=== PATIENT | male | born 1960 | race American Indian/Alaskan Native ===

== ENCOUNTER 2016-12-17 08:27 | Emergency (ER) | payer MEDICAID ==
[2016-12-17 08:38] VITALS: BP 158/89
--- NOTE | 2016-12-17 09:00 | EDM.PDOC ---
ED HPI GENERAL MEDICAL PROBLEM - General Chief Complaint: Abdominal Pain Stated Complaint: IN BY AMBULANCE Time Seen by Provider: 12/17/16 08:45 Source of Information: Reports: Patient History Limitations: Reports: No Limitations - History of Present Illness INITIAL COMMENTS - FREE TEXT/NARRATIVE: This 56 yo male patient was brought to the ED by [facility] due to right lower abdominal pain and bulging. The patient reports he has a history of a right inguinal hernia that he was supposed to have repaired. The patient reports he missed his appointment due to family emergencies. Today, the patient was lifting a 5 gallon jug of water when he felt bulging in the area. The patient reports he has been attempting to reduce the hernia, but has been unable. Onset: Today Duration: Minutes:, Constant Location: Reports: Abdomen Quality: Reports: Ache, Dull Severity: Moderate Improves with: Reports: None Worsens with: Reports: None Right Abdominal Pain Score (Numeric/FACES): 70 - Related Data Allergies Allergy/AdvReac Type Severity Reaction Status Date / Time Penicillins Allergy Renal Verified 12/17/16 08:18 Insufficiency Past Medical History HEENT History: Reports: Impaired Vision Other HEENT History: legally blind, sees shadows Cardiovascular History: Reports: Hypertension Respiratory History: Reports: None Other Gastrointestinal History: R) ing hernia Genitourinary History: Reports: None Musculoskeletal History: Reports: Arthritis Neurological History: Reports: None Psychiatric History: Reports: None Endocrine/Metabolic History: Reports: None Hematologic History: Reports: None Immunologic History: Reports: None Oncologic (Cancer) History: Reports: None Dermatologic History: Reports: None - Infectious Disease History Infectious Disease History: Reports: None Social & Family History - Tobacco Use Smoking Status *Q: Current Every Day Smoker Years of Tobacco use: 25 Packs/Tins Daily: 0.5 Used Tobacco, but Quit: No Second Hand Smoke Exposure: Yes - Caffeine Use Caffeine Use: Reports: Coffee - Alcohol Use Days Per Week of Alcohol Use: 3 Number of Drinks Per Day: 6 Total Drinks Per Week: 18 - Recreational Drug Use Recreational Drug Use: No ED ROS GENERAL - Review of Systems Review Of Systems: ROS reveals no pertinent complaints other than HPI. 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)) Ears: Normal External Exam, Normal Canal, Hearing Grossly Normal, Normal TMs Nose: Normal Inspection, Normal Mucosa, No Blood Throat/Mouth: Normal Inspection, Normal Lips, Normal Teeth, Normal Gums, Normal Oropharynx, Normal Voice, No Airway Compromise Head: Atraumatic, Normocephalic Neck: Normal Inspection, Supple, Non-Tender, Full Range of Motion Respiratory/Chest: No Respiratory Distress, Lungs Clear, Normal Breath Sounds, No Accessory Muscle Use, Chest Non-Tender Cardiovascular: Normal Peripheral Pulses, Regular Rate, Rhythm, No Edema, No Gallop, No JVD, No Murmur, No Rub GI/Abdominal Exam: Normal Bowel Sounds, Soft, Tender (Right inguinal hernia), Hernia (right inguinal hernia) (Male) Exam: Deferred Rectal (Males) Exam: Deferred Back Exam: Normal Inspection, Full Range of Motion, NT Extremities: Normal Inspection, Normal Range of Motion, Non-Tender, Normal Capillary Refill, No Pedal Edema Neurological: Alert, Oriented, CN II-XII Intact, Normal Cognition, Normal Gait, Normal Reflexes, No Motor/Sensory Deficits Psychiatric: Normal Affect, Normal Mood Skin Exam: Warm, Dry, Intact, Normal Color, No Rash Lymphatic: No Adenopathy ED ABDOMINAL/GI PROCEDURES - Additional/Other Procedure(s) Procedure(s) (Free Text): Right inguinal hernia reduction by manual manipulation. Course - Vital Signs Last Recorded V/S: Last Vital Signs Temp 35.9 C 12/17/16 08:27 Pulse 68 12/17/16 08:27 Resp 16 12/17/16 08:27 BP 158/89 H 12/17/16 08:27 Pulse Ox 100 12/17/16 08:27 - Orders/Labs/Meds Labs: Laboratory Tests 12/17/16 12/17/16 12/17/16 Range/Units 08:45 09:00 09:00 WBC 7.2 (5.0-10.0) 10^3/uL RBC 4.45 L (4.6-6.2) 10^6/uL Hgb 14.2 (14.0-18.0) g/dL Hct 41.1 (40.0-54.0) % MCV 92.4 (80-100) fL MCH 31.9 (27.0-34.0) pg MCHC 34.5 (33.0-35.0) g/dL Plt Count 146 L (150-450) 10^3/uL Neut % (Auto) 70.8 (42.2-75.2) % Lymph % (Auto) 19.2 L (20.5-50.1) % [place] % (Auto) 7.6 (2-8) % Eos % (Auto) 2.1 (1.0-3.0) % Baso % (Auto) 0.3 (0.0-1.0) % Sodium 139 (135-145) mmol/L Potassium 3.1 L (3.6-5.0) mmol/L Chloride 102 (101-111) mmol/L Carbon Dioxide 24.0 (21.0-31.0) mmol/L Anion Gap 16.1 BUN 12 (7-18) mg/dL Creatinine 0.7 (0.6-1.3) mg/dL Est Cr Clr Drug Dosing 112.05 mL/min Estimated GFR (MDRD) > 60 BUN/Creatinine Ratio 17.14 Glucose 100 (74-105) mg/dL Calcium 9.2 (8.4-10.2) mg/dl Total Bilirubin 0.9 (0.2-1.0) mg/dL AST 29 (10-42) IU/L ALT 16 (10-60) IU/L Alkaline Phosphatase 65 (42-121) IU/L Total Protein 7.4 (6.7-8.2) g/dl Albumin 4.5 (3.2-5.5) g/dl Globulin 2.9 Albumin/Globulin Ratio 1.55 Urine Color Yellow (YELLOW) Urine Appearance Clear (CLEAR) Urine pH 7.0 (5.0-9.0) Ur Specific [place] 1.015 (1.005-1.030) Urine Protein Negative (NEGATIVE) Urine Glucose (UA) Negative (NEGATIVE) Urine Ketones Negative (NEGATIVE) Urine Occult Blood Negative (NEGATIVE) Urine Nitrite Negative (NEGATIVE) Urine Bilirubin Negative (NEGATIVE) Urine Urobilinogen 0.2 (0.2-1.0) mg/dL Ur Leukocyte Esterase Negative (NEGATIVE) Urine RBC Not seen /HPF Urine WBC 0-5 (0-5/HPF) /HPF Ur Epithelial Cells Rare /HPF Urine Bacteria Not seen (0-FEW/HPF) /HPF Urine Mucus Not seen /LPF - Re-Assessments/Exams Free Text/Narrative Re-Assessment/Exam: 12/17/16 09:41 Reexamination of the patient reveals that the patient is feeling much better after the hernia was reduced. Departure - Departure Time of Disposition: 09:42 Disposition: Home, Self-Care 01 Condition: Fair Clinical Impression: Inguinal hernia Qualifiers: Obstruction and gangrene presence: without obstruction or gangrene Laterality: unilateral Recurrence: recurrent Qualified Code(s): K40.91 - Unilateral inguinal hernia, without obstruction or gangrene, recurrent - Discharge Information Instructions: Inguinal Hernia, Adult, [id number] Forms: ED Department Discharge Care Plan Goals: The patient was advised of the examination and lab results during the visit. The patient's hernia was reduced without incident. The patient was encouraged to follow-up with his primary care facility for continued evaluation and management of his hernia. If the patient has any additional symptoms or concerns , the patient should follow-up with his primary care facility or return to the emergency department.
[2016-12-17 09:26] LABS: CHLORIDE,CL 102 mmol/L (101-111); SODIUM,NA 139 mmol/L (135-145)
== END 2016-12-17 10:00 | disposition home or self-care (01) ==
LOC: DL.ED 08:27
DX: K40.91 Unilateral inguinal hernia, without obstruction or gangrene, recurrent (principal); I10 Essential (primary) hypertension; M19.90 Unspecified osteoarthritis, unspecified site; F17.210 Nicotine dependence, cigarettes, uncomplicated; Z88.0 Allergy status to penicillin
CPT/HCPCS: 36415; 80053; 81001; 85025; 99285

== ENCOUNTER 2020-02-08 11:19 | Emergency (ER) | payer MEDICAID ==
--- NOTE | 2020-02-08 11:34 | EDM.PDOC ---
ED HPI GENERAL MEDICAL PROBLEM - General Chief Complaint: Abdominal Pain Stated Complaint: [facility] Time Seen by Provider: 02/08/20 11:34 Source of Information: Reports: Patient, EMS, Old Records, RN, RN Notes Reviewed History Limitations: Reports: No Limitations - History of Present Illness INITIAL COMMENTS - FREE TEXT/NARRATIVE: Pt arrives from home by [facility] with c/o that his right inguinal hernia bulged out and he cannot reduce it like he usually can. Pt states he has had the hernia for years during which time it routinely slides out and he just pushes with his hands and it would go back in. Now he has pushed and pushed but states it feel very hard and is acutely tender. Pt last ate a small amount at 0800HRS this morning. 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 Right Groin Pain Score (Numeric/FACES): 8 - Related Data Allergies Allergy/AdvReac Type Severity Reaction Status Date / Time Penicillins Allergy Renal Verified 04/26/18 19:35 Insufficiency Home Meds: Home Meds Hydrocodone/Acetaminophen [Hydrocodon-Acetaminophen 5-325] 1 each PO BID 04/26/18 [History] amLODIPine [Norvasc] 1 tab PO DAILY 04/26/18 [History] Past Medical History HEENT History: Reports: Impaired Vision Other HEENT History: legally blind, sees shadows Cardiovascular History: Reports: Hypertension Respiratory History: Reports: None Other Gastrointestinal History: R) ing hernia Musculoskeletal History: Reports: Arthritis Neurological History: Reports: None Psychiatric History: Reports: None Endocrine/Metabolic History: Reports: None Hematologic History: Reports: None Immunologic History: Reports: None Oncologic (Cancer) History: Reports: None Dermatologic History: Reports: None - Infectious Disease History Infectious Disease History: Reports: None Social & Family History - Caffeine Use Caffeine Use: Reports: Coffee - Living Situation & Occupation Living situation: Reports: with Family ED ROS GENERAL - Review of Systems Review Of Systems: Comprehensive ROS is negative, except as noted in HPI. ED EXAM, GI/ABD - Physical Exam Exam: See Below Exam Limited By: No Limitations General Appearance: Alert, WD/WN, No Apparent Distress, Other (Uncomfortable but non-toxic appearing) Respiratory/Chest: No Respiratory Distress, Lungs Clear Cardiovascular: Normal Peripheral Pulses, Regular Rate, Rhythm, No Edema GI/Abdominal Exam: Normal Bowel Sounds, Soft, No Distention, Pelvis Stable, Tender (Rt inguial region), Hernia (firm and tender right inguinal hernia unable to reduce on initial assessment, will medicate pt for pain and try to reduce.). No: Guarding, Rigid, Rebound Rectal (Males) Exam: Deferred Extremities: Normal Inspection Neurological: Alert, Oriented, No Motor/Sensory Deficits Psychiatric: Normal Mood Skin Exam: Warm, Dry, Intact, Normal Color Course - Vital Signs Last Recorded V/S: Last Vital Signs Temp 97.6 F 02/08/20 11:19 Pulse 77 02/08/20 11:19 Resp 16 02/08/20 11:19 BP 163/96 H 02/08/20 11:19 Pulse Ox 98 02/08/20 11:19 - Orders/Labs/Meds Orders: Active Orders 24 hr Category Date Time Status NPO [Nothing Per Oral Diet] [DIET] Diet 02/08/20 Dinner Active LACTIC ACID [CHEM] Stat Lab 02/08/20 12:53 Received HYDROmorphone [Dilaudid] Med 02/08/20 13:26 Once 1 mg IVPUSH ONETIME ONE Medication Orders Hydromorphone HCl (Dilaudid) 1 mg IVPUSH ONETIME ONE Stop: 02/08/20 13:27 Labs: Laboratory Tests 02/08/20 02/08/20 Range/Units 12:53 12:53 WBC 7.3 (5.0-10.0) 10^3/uL RBC 4.36 L (4.6-6.2) 10^6/uL Hgb 14.0 (14.0-18.0) g/dL Hct 40.6 (40.0-54.0) % MCV 93.1 (80-100) fL MCH 32.1 (27.0-34.0) pg MCHC 34.5 (33.0-35.0) g/dL Plt Count 108 L (150-450) 10^3/uL Neut % (Auto) 72.2 (42.2-75.2) % Lymph % (Auto) 17.5 L (20.5-50.1) % [place] % (Auto) 8.8 H (2-8) % Eos % (Auto) 1.2 (1.0-3.0) % Baso % (Auto) 0.3 (0.0-1.0) % Sodium 138 (136-145) mmol/L Potassium 3.5 (3.5-5.1) mmol/L Chloride 99 (98-107) mmol/L Carbon Dioxide 31 (21-32) mmol/L Anion Gap 11.5 (7-13) mEq/L BUN 14 (7-18) mg/dL Creatinine 0.79 (0.70-1.30) mg/dL Est Cr Clr Drug Dosing 99.44 mL/min Estimated GFR (MDRD) > 60 BUN/Creatinine Ratio 17.7 (No establ ref range) Glucose 94 (74-99) mg/dL Calcium 8.7 (8.5-10.1) mg/dL Total Bilirubin 0.9 (0.2-1.0) mg/dL AST 64 H (15-37) U/L ALT 54 (16-63) U/L Alkaline Phosphatase 75 (46-116) U/L C-Reactive Protein 1.5 H (0.0-0.9) mg/dL Total Protein 7.1 (6.4-8.2) g/dL Albumin 3.6 (3.4-5.0) g/dL Globulin 3.5 Albumin/Globulin Ratio 1.0 Amylase 36 (25-115) U/L Lipase 147 (73-393) U/L Meds: Medications Generic Name Dose Route Start Last Admin Trade Name Freq PRN Reason Stop Dose Admin Hydromorphone HCl 1 mg 02/08/20 13:26 Dilaudid IVPUSH 02/08/20 13:27 ONETIME ONE Discontinued Medications Generic Name Dose Route Start Last Admin Trade Name Freq PRN Reason Stop Dose Admin Hydromorphone HCl 1 mg 02/08/20 11:40 02/08/20 11:58 Dilaudid IVPUSH 02/08/20 11:41 1 mg ONETIME ONE Administration Ondansetron HCl 4 mg 02/08/20 11:40 02/08/20 11:55 Zofran IV 02/08/20 11:41 4 mg ONETIME ONE Administration - Re-Assessments/Exams Free Text/Narrative Re-Assessment/Exam: 02/08/20 12:20 Unable to reduce Rt ing. hernia. No surgeon avail. in [place], [facility] is full and on diversion, as is [facility]. Pt accepted for transfer by ground ambulance to [place], by Dr. Urrutia. Departure - Departure Time of Disposition: 12:55 Disposition: DC/Tfer to [facility] 02 Condition: Fair Clinical Impression: Incarcerated right inguinal hernia - Discharge Information *PRESCRIPTION DRUG MONITORING PROGRAM REVIEWED*: Not Applicable *COPY OF PRESCRIPTION DRUG MONITORING REPORT IN PATIENT ЕЛЕНА: Not Applicable Forms: ED Department Discharge, Interfacility Transfer EMTALA Sepsis Event Note (ED) - Focused Exam Vital Signs: Vital Signs Temp Pulse Resp BP Pulse Ox 02/08/20 11:19 97.6 F 77 16 163/96 H 98 - My Orders Last 24 Hours: My Active Orders 02/08/20 12:53 LACTIC ACID [CHEM] Stat 02/08/20 13:26 HYDROmorphone [Dilaudid] 1 mg IVPUSH ONETIME ONE 02/08/20 Dinner NPO [Nothing Per Oral Diet] [DIET] - Assessment/Plan Last 24 Hours: My Active Orders 02/08/20 12:53 LACTIC ACID [CHEM] Stat 02/08/20 13:26 HYDROmorphone [Dilaudid] 1 mg IVPUSH ONETIME ONE 02/08/20 Dinner NPO [Nothing Per Oral Diet] [DIET]
[2020-02-08] MEDS ORDERED: Ondansetron 4 MG/2 ML SDV IV ONE (11:40)
[2020-02-08] MEDS ORDERED: HYDROmorphone 1 MG/ML Syringe IVPUSH ONE ×2 (11:40→13:26)
[2020-02-08 11:42] VITALS: BP 163/96; PULSE 77
[2020-02-08 13:19] LABS: ANION GAP 11.5 mEq/L (7-13); CHLORIDE,CL 99 mmol/L (98-107); SODIUM,NA 138 mmol/L (136-145)
== END 2020-02-08 14:00 ==
LOC: DL.ED 11:19
DX: K40.30 Unilateral inguinal hernia, with obstruction, without gangrene, not specified as recurrent (principal); I10 Essential (primary) hypertension; Z79.899 Other long term (current) drug therapy; Z88.0 Allergy status to penicillin
CPT/HCPCS: 36415; 80053; 82150; 83605; 83690; 85025; 86140; 96374; 96375; 96376; 99285; J1170; J2405; 99283

== ENCOUNTER 2023-03-16 18:04 | Emergency (ER) | payer MEDICAID ==
[2023-03-16 17:31] LABS: BASOPHILS PERCENT AUTO 0.2 % (0.0-1.0); EOSINOPHILS PERCENT AUTO 0.2 % (1.0-3.0); HEMATOCRIT 44.6 % (40.0-54.0); HEMOGLOBIN 15.2 g/dL (14.0-18.0); LYMPHOCYTES PERCENT AUTO 21.2 % (20.5-50.1); MEAN CORPUSCULAR HEMOGLOBIN 31.1 pg (27.0-34.0); MEAN CORPUSCULAR HGB CONC 34.1 g/dL (33.0-35.0); MEAN CORPUSCULAR VOLUME 91.4 fL (80-100); MONOCYTES PERCENT AUTO 7.4 % (2-8); PLATELET COUNT,PLT 210 10^3/uL (150-450); RED BLOOD CELL COUNT 4.88 10^6/uL (4.6-6.2); WHITE BLOOD CELL COUNT,WBC 9.9 10^3/uL (5.0-10.0)
[2023-03-16 17:57] LABS: ALBUMIN 4.2 g/dL (3.4-5.0); ANION GAP 17.2 mEq/L (7-13); BILIRUBIN TOTAL 0.5 mg/dL (0.2-1.0); BUN/CREATININE RATIO 10.3 (No establ ref range); CREATININE 0.97 mg/dL (0.70-1.30); EST CRCL DRUG DOSING (CG) 72.88 mL/min; POTASSIUM,K 3.2 mmol/L (3.5-5.1); PROTEIN TOTAL,TP 8.2 g/dL (6.4-8.2)
[2023-03-16 18:02] LABS: LACTIC ACID 2.8 mmol/L (0.4-2.0)
[~2023-03-16 18:04] MED LIST: Morphine 2 MG/ML SYRINGE IVPUSH ONE; Morphine 4 MG/ML Syringe ONE; Sodium Chloride 0.9% 10 ML Syringe FLUSH PRN
[2023-03-16 18:14] LABS: APPEARANCE,URINE CLEAR (CLEAR); BILIRUBIN,URINE NEGATIVE (NEGATIVE); COLOR,URINE YELLOW (YELLOW); GLUCOSE,URINE NEGATIVE (NEGATIVE); KETONES,URINE NEGATIVE (NEGATIVE); LEUKOCYTE ESTERASE,URINE NEGATIVE (NEGATIVE); NITRITE,URINE NEGATIVE (NEGATIVE); OCCULT BLOOD,URINE NEGATIVE (NEGATIVE); PROTEIN,URINE NEGATIVE (NEGATIVE); UROBILINOGEN,URINE 0.2 mg/dL (0.2-1.0)
[2023-03-16 18:19] LABS: AMPHETAMINES,URINE NEGATIVE (NEGATIVE); BARBITURATES,URINE NEGATIVE (NEGATIVE); BENZODIAZEPINE,URINE NEGATIVE (NEGATIVE); MDMA (ECSTASY), URINE NEGATIVE (NEGATIVE); METHADONE,URINE NEGATIVE (NEGATIVE); METHAMPHETAMINES,URINE NEGATIVE (NEGATIVE); OPIATES,URINE NEGATIVE (NEGATIVE); OXYCODONE,URINE NEGATIVE (NEGATIVE); PHENCYCLIDINE,URINE NEGATIVE (NEGATIVE); TCA,URINE NEGATIVE (NEGATIVE)
[2023-03-16] MEDS ORDERED: fentaNYL 100 MCG/2 ML SDV IVPUSH ONE (19:18)
[2023-03-16 19:36] VITALS: BP 138/96; PULSE 90
== END 2023-03-16 20:02 | disposition home or self-care (01) ==
LOC: DL.ED 18:04
DX: K80.70 Calculus of gallbladder and bile duct without cholecystitis without obstruction (principal); I10 Essential (primary) hypertension; F17.210 Nicotine dependence, cigarettes, uncomplicated; Z88.0 Allergy status to penicillin; Z79.899 Other long term (current) drug therapy
CPT/HCPCS: 36415; 70450; 74176; 80053; 80305; 81003; 83605; 84484; 85025; 87040; 96374; 99285; J2270; J3010; J3490

== ENCOUNTER 2023-05-03 21:00 | Emergency (ER) | payer MEDICAID ==
[2023-05-03 21:22] LABS: BASOPHILS PERCENT AUTO 0.3 % (0.0-1.0); EOSINOPHILS PERCENT AUTO 0.8 % (1.0-3.0); HEMATOCRIT 46.1 % (40.0-54.0); HEMOGLOBIN 16.3 g/dL (14.0-18.0); LYMPHOCYTES PERCENT AUTO 32.7 % (20.5-50.1); MEAN CORPUSCULAR HEMOGLOBIN 31.8 pg (27.0-34.0); MEAN CORPUSCULAR HGB CONC 35.4 g/dL (33.0-35.0); MONOCYTES PERCENT AUTO 8.5 % (2-8); NEUTROPHILS PERCENT AUTO 57.7 % (42.2-75.2); PLATELET COUNT,PLT 254 10^3/uL (150-450); RED BLOOD CELL COUNT 5.12 10^6/uL (4.6-6.2); WHITE BLOOD CELL COUNT,WBC 9.3 10^3/uL (5.0-10.0)
[2023-05-03] MEDS ORDERED: Aluminum Hydroxide/Magnesium Hydroxide/Simethicone Susp 30 ML Cup PO ONE (21:24)
[2023-05-03] MEDS ORDERED: Lidocaine 2% Viscous Solution 15 ML UD PO ONE (21:24)
[2023-05-03 21:46] LABS: ALANINE AMINOTRANSFERASE,ALT 19 U/L (16-63); ALBUMIN 4.3 g/dL (3.4-5.0); ALKALINE PHOSPHATASE 125 U/L (46-116); ANION GAP 14.1 mEq/L (7-13); ASPARTATE AMNIOTRANSFERASE,AST 23 U/L (15-37); BILIRUBIN TOTAL 0.4 mg/dL (0.2-1.0); BLOOD UREA NITROGEN,BUN 8 mg/dL (7-18); BUN/CREATININE RATIO 9.9 (No establ ref range); C-REACTIVE PROTEIN < 0.50 ng/dL (<=0.50); CALCIUM 8.6 mg/dL (8.5-10.1); CARBON DIOXIDE,CO2 26 mmol/L (21-32); CHLORIDE,CL 104 mmol/L (98-107); CREATININE 0.81 mg/dL (0.70-1.30); ESTIMATED GFR 98 mL/min (>=60); ETHANOL BLOOD MEDICAL 331 mg/dL (0); GLUCOSE RANDOM 91 mg/dL (70-99); LACTIC ACID 2.3 mmol/L (0.4-2.0); LIPASE 36 U/L (16-77); POTASSIUM,K 3.1 mmol/L (3.5-5.1); PROTEIN TOTAL,TP 8.7 g/dL (6.4-8.2); SODIUM,NA 141 mmol/L (136-145)
[2023-05-03 21:47] LABS: B-TYPE NATRIURETIC PEPTIDE,BNP 127 pg/ml (0-100)
[2023-05-03 21:47] LABS: APPEARANCE,URINE CLEAR (CLEAR); BILIRUBIN,URINE NEGATIVE (NEGATIVE); COLOR,URINE YELLOW (YELLOW); GLUCOSE,URINE NEGATIVE (NEGATIVE); KETONES,URINE NEGATIVE (NEGATIVE); LEUKOCYTE ESTERASE,URINE NEGATIVE (NEGATIVE); NITRITE,URINE NEGATIVE (NEGATIVE); OCCULT BLOOD,URINE NEGATIVE (NEGATIVE); PROTEIN,URINE NEGATIVE (NEGATIVE); UROBILINOGEN,URINE 0.2 mg/dL (0.2-1.0)
[2023-05-03 21:49] LABS: AMPHETAMINES,URINE NEGATIVE (NEGATIVE); BARBITURATES,URINE NEGATIVE (NEGATIVE); BENZODIAZEPINE,URINE NEGATIVE (NEGATIVE); MDMA (ECSTASY), URINE NEGATIVE (NEGATIVE); METHADONE,URINE NEGATIVE (NEGATIVE); METHAMPHETAMINES,URINE NEGATIVE (NEGATIVE); OPIATES,URINE NEGATIVE (NEGATIVE); OXYCODONE,URINE NEGATIVE (NEGATIVE); PHENCYCLIDINE,URINE NEGATIVE (NEGATIVE); TCA,URINE NEGATIVE (NEGATIVE)
[2023-05-03 22:03] LABS: INR 0.9 (0.9-1.2); PROTHROMBIN TIME 9.3 SEC (9.0-12.0); PTT,PARTIAL THROMBOPLSTIN TIME 25.2 SEC (22.0-34.0)
[2023-05-03 22:03] LABS: CORONAVIRUS COVID-19 NAA NEGATIVE (NEGATIVE); INFLUENZA A NAA NEGATIVE (NEGATIVE); INFLUENZA B NAA NEGATIVE (NEGATIVE); RESPIRATORY SYNCYTIAL VIR NAA NEGATIVE (NEGATIVE)
[2023-05-03] MEDS ORDERED: Sodium Chloride 0.9% 1,000 ML IV ONE (22:06)
[2023-05-04 00:05] VITALS: BP 167/106; PULSE 86
== END 2023-05-03 23:52 | disposition home or self-care (01) ==
LOC: DL.ED 21:00
DX: K21.9 Gastro-esophageal reflux disease without esophagitis (principal); E87.6 Hypokalemia; F10.920 Alcohol use, unspecified with intoxication, uncomplicated; Z20.822 Contact with and (suspected) exposure to COVID-19; I10 Essential (primary) hypertension; F17.210 Nicotine dependence, cigarettes, uncomplicated; Z79.899 Other long term (current) drug therapy; Z88.0 Allergy status to penicillin
CPT/HCPCS: 0241U; 36415; 71045; 80053; 80305-QW; 80307; 81003; 83605; 83690; 83880; 84443; 84484; 85025; 85610; 85730; 86140; 93005; 93010; 96360; 96361; 99284; 99285-25; A9270-GY; J7030

== ENCOUNTER 2023-09-24 19:24 | Inpatient (IN) | payer MEDICAID ==
[2023-09-24 20:34] LABS: BASOPHILS PERCENT AUTO 0.2 % (0.0-1.0); HEMATOCRIT 43.7 % (40.0-54.0); LYMPHOCYTES PERCENT AUTO 29.4 % (20.5-50.1); MEAN CORPUSCULAR HEMOGLOBIN 31.7 pg (27.0-34.0); MEAN CORPUSCULAR HGB CONC 34.3 g/dL (33.0-35.0); MEAN CORPUSCULAR VOLUME 92.4 fL (80-100); MONOCYTES PERCENT AUTO 8.6 % (2-8); NEUTROPHILS PERCENT AUTO 55.8 % (42.2-75.2); PLATELET COUNT,PLT 220 10^3/uL (150-450); RED BLOOD CELL COUNT 4.73 10^6/uL (4.6-6.2); WHITE BLOOD CELL COUNT,WBC 8.2 10^3/uL (5.0-10.0)
[2023-09-24] MEDS: Sodium Chloride 0.9% 10 ML Syringe FLUSH PRN (20:35)
[2023-09-24] MEDS: Acetaminophen 500 MG Tab PO ONE (20:37)
[2023-09-24 20:58] LABS: ALANINE AMINOTRANSFERASE,ALT 19 U/L (16-63); ALBUMIN 3.8 g/dL (3.4-5.0); ALKALINE PHOSPHATASE 101 U/L (46-116); ANION GAP 13.4 mEq/L (7-13); ASPARTATE AMNIOTRANSFERASE,AST 21 U/L (15-37); BILIRUBIN TOTAL 0.4 mg/dL (0.2-1.0); BLOOD UREA NITROGEN,BUN 18 mg/dL (7-18); BUN/CREATININE RATIO 20.2 (No establ ref range); CARBON DIOXIDE,CO2 25 mmol/L (21-32); CHLORIDE,CL 102 mmol/L (98-107); CREATININE 0.89 mg/dL (0.70-1.30); GLUCOSE RANDOM 110 mg/dL (70-99); POTASSIUM,K 3.4 mmol/L (3.5-5.1); PROTEIN TOTAL,TP 7.5 g/dL (6.4-8.2); SODIUM,NA 137 mmol/L (136-145)
[2023-09-24 21:01] LABS: LACTIC ACID 1.2 mmol/L (0.4-2.0)
[2023-09-24 21:02] LABS: C-REACTIVE PROTEIN < 0.50 ng/dL (<=0.50); ESTIMATED GFR 96 mL/min (>=60)
[2023-09-24] MEDS: Piperacillin/Tazobactam 4.5 GM in Sodium Chloride 0.9% 100 ML IV ONE (21:33)
[2023-09-24] MEDS ORDERED: Acetaminophen 325 MG Tab PO PRN (22:10)
[2023-09-24] MEDS ORDERED: Ondansetron 4 MG Tab.DIS PO PRN (22:10)
[2023-09-24] MEDS: amLODIPine 5 MG Tab PO SCH (22:47)
[2023-09-24] MEDS: Sodium Chloride 0.9% 1,000 ML IV SCH (22:48)
[2023-09-24] MEDS: Acetaminophen/HYDROcodone 325-5 MG Tab PO PRN (22:49)
[2023-09-25] MEDS ORDERED: Piperacillin/Tazobactam 3.375 GM in Sodium Chloride 0.9% 100 ML IV SCH
[2023-09-25] MEDS: Piperacillin/Tazobactam 4.5 GM in Sodium Chloride 0.9% 100 ML IV SCH (05:17)
[2023-09-25 06:05] LABS: BASOPHILS PERCENT AUTO 0.1 % (0.0-1.0); EOSINOPHILS PERCENT AUTO 7.5 % (1.0-3.0); HEMATOCRIT 40.8 % (40.0-54.0); LYMPHOCYTES PERCENT AUTO 25.5 % (20.5-50.1); MEAN CORPUSCULAR HEMOGLOBIN 31.8 pg (27.0-34.0); MEAN CORPUSCULAR HGB CONC 34.3 g/dL (33.0-35.0); MEAN CORPUSCULAR VOLUME 92.7 fL (80-100); MONOCYTES PERCENT AUTO 8.1 % (2-8); NEUTROPHILS PERCENT AUTO 58.8 % (42.2-75.2); PLATELET COUNT,PLT 196 10^3/uL (150-450); WHITE BLOOD CELL COUNT,WBC 6.9 10^3/uL (5.0-10.0)
[2023-09-25 06:20] LABS: ANION GAP 12.3 mEq/L (7-13); CALCIUM 7.6 mg/dL (8.5-10.1); CREATININE 0.81 mg/dL (0.70-1.30); EST CRCL DRUG DOSING (CG) 92.13 mL/min; POTASSIUM,K 3.3 mmol/L (3.5-5.1)
[2023-09-25] MEDS: Nicotine 14 MG/24 Hr Patch TRDERM SCH (08:10)
[2023-09-25] MEDS: Enoxaparin 40 MG/0.4 ML Syringe SUBCUT SCH (08:10)
[2023-09-25] MEDS: Potassium Chloride 10 MEQ Tab.ER PO ONE (09:33)
[2023-09-25] MEDS: Ibuprofen 200 MG Tab PO PRN (22:27)
[2023-09-26 06:19] LABS: ANION GAP 11.5 mEq/L (7-13); CALCIUM 7.6 mg/dL (8.5-10.1); CREATININE 0.77 mg/dL (0.70-1.30); EST CRCL DRUG DOSING (CG) 96.92 mL/min; MAGNESIUM 1.7 mg/dL (1.8-2.4); POTASSIUM,K 3.5 mmol/L (3.5-5.1)
[2023-09-26] MEDS ORDERED: Sodium Chloride 0.9% 10 ML Syringe FLUSH PRN (08:23)
[2023-09-26] MEDS: Potassium Chloride 10 MEQ Tab.ER PO ONE (09:49)
[2023-09-26] MEDS: amLODIPine 5 MG Tab PO SCH (09:51)
[2023-09-27 07:31] VITALS: BP 123/69; PULSE 72
[2023-09-27] MEDS: amLODIPine 5 MG Tab PO SCH (10:10)
== END 2023-09-27 09:46 | disposition home or self-care (01) | DRG 603 ==
LOC: DL.ED 19:24 → DL.MS 21:40 → DL.ED 21:55
PROVIDERS: ADMIT Internal Medicine; ATTEND Internal Medicine
DX: L03.116 Cellulitis of left lower limb (principal); L03.115 Cellulitis of right lower limb; E87.6 Hypokalemia; L30.9 Dermatitis, unspecified; I10 Essential (primary) hypertension; M19.90 Unspecified osteoarthritis, unspecified site; H40.9 Unspecified glaucoma; F17.210 Nicotine dependence, cigarettes, uncomplicated; Z88.0 Allergy status to penicillin; Z79.899 Other long term (current) drug therapy
CPT/HCPCS: 36415; 80048; 80053; 80202; 83605; 83735; 84145; 85025; 86140; 87040; 87070; 87077; 96365; 99284-25; 99285; A9270-GY; J1650; J2543; J3370; J3490; J7030; J7050

== ENCOUNTER 2024-01-01 21:47 | Emergency (ER) | payer MEDICAID ==
[2024-01-01 23:35] VITALS: BP 144/99; PULSE 72
[2024-01-02] MEDS: Sodium Chloride 0.9% 10 ML Syringe FLUSH PRN (00:47)
[2024-01-02] MEDS: ceFAZolin 2 GM Vial IVPUSH ONE (00:47)
[2024-01-02 00:57] LABS: BASOPHILS PERCENT AUTO 0.4 % (0.0-1.0); EOSINOPHILS PERCENT AUTO 4.6 % (1.0-3.0); HEMATOCRIT 41.7 % (40.0-54.0); HEMOGLOBIN 14.4 g/dL (14.0-18.0); LYMPHOCYTES PERCENT AUTO 20.7 % (20.5-50.1); MEAN CORPUSCULAR HGB CONC 34.5 g/dL (33.0-35.0); MEAN CORPUSCULAR VOLUME 92.7 fL (80-100); MONOCYTES PERCENT AUTO 8.5 % (2-8); NEUTROPHILS PERCENT AUTO 65.8 % (42.2-75.2); PLATELET COUNT,PLT 208 10^3/uL (150-450); WHITE BLOOD CELL COUNT,WBC 7.6 10^3/uL (5.0-10.0)
[2024-01-02 01:01] LABS: APPEARANCE,URINE CLEAR (CLEAR); BILIRUBIN,URINE NEGATIVE (NEGATIVE); COLOR,URINE YELLOW (YELLOW); GLUCOSE,URINE NEGATIVE (NEGATIVE); KETONES,URINE NEGATIVE (NEGATIVE); LEUKOCYTE ESTERASE,URINE NEGATIVE (NEGATIVE); NITRITE,URINE NEGATIVE (NEGATIVE); OCCULT BLOOD,URINE NEGATIVE (NEGATIVE); PROTEIN,URINE NEGATIVE (NEGATIVE); UROBILINOGEN,URINE 0.2 mg/dL (0.2-1.0)
[2024-01-02 01:18] LABS: LACTIC ACID 1.8 mmol/L (0.4-2.0)
[2024-01-02 01:25] LABS: A/G RATIO 1.1; ALANINE AMINOTRANSFERASE,ALT 15 U/L (16-63); ALBUMIN 3.6 g/dL (3.4-5.0); ALKALINE PHOSPHATASE 103 U/L (46-116); ASPARTATE AMNIOTRANSFERASE,AST 17 U/L (15-37); BILIRUBIN TOTAL 0.4 mg/dL (0.2-1.0); BLOOD UREA NITROGEN,BUN 12 mg/dL (7-18); BUN/CREATININE RATIO 12.2 (No establ ref range); CALCIUM 8.6 mg/dL (8.5-10.1); CARBON DIOXIDE,CO2 25 mmol/L (21-32); CHLORIDE,CL 103 mmol/L (98-107); CREATININE 0.98 mg/dL (0.70-1.30); EST CRCL DRUG DOSING (CG) 73.67 mL/min; GLUCOSE RANDOM 99 mg/dL (70-99); PROTEIN TOTAL,TP 6.9 g/dL (6.4-8.2); SODIUM,NA 140 mmol/L (136-145)
[2024-01-02 01:27] LABS: C-REACTIVE PROTEIN < 0.50 ng/dL (<=0.50); ESTIMATED GFR 86 mL/min (>=60)
[2024-01-02] MEDS: Triamcinolone Acetonide 0.1% Crm 15 GM Tube TOP ONE (01:39)
[2024-01-02] MEDS: Take Home: Doxycycline 100 MG Cap, 4 Cap Pack PO ONE (02:03)
== END 2024-01-02 02:10 | disposition home or self-care (01) ==
LOC: DL.ED 21:47
DX: L03.115 Cellulitis of right lower limb (principal); L40.9 Psoriasis, unspecified; I10 Essential (primary) hypertension; K21.9 Gastro-esophageal reflux disease without esophagitis; F17.210 Nicotine dependence, cigarettes, uncomplicated; Z88.0 Allergy status to penicillin
CPT/HCPCS: 36415; 80053; 81003; 83605; 85025; 86140; 87040; 96374; 99283; 99283-25; A9270-GY; J0690; J3490